=== PATIENT | female | born 1970 | race Caucasian/White ===

== ENCOUNTER 2016-11-11 10:25 | Emergency (ER) | payer BC, SELFPAY ==
--- NOTE | 2016-12-18 18:52 | ER ---
ADMIT: 11/11/2016 RM/LOC: ER [facility] MR#: [id number] [address] [id number] CLEMENTE GUO [address] [facility] [place] [address] Emergency Room Report SEX: F AGE: 46 : 1970 DATE: 11/11/2016 ADDENDUM: This patient comes to the ER because she is having shortness of breath that started this morning. It was a sudden onset. She says the severity is moderate, and it seems to be worse by exertion. 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 On physical exam, her lungs are clear. Heart regular rate and rhythm. Abdomen is soft. She did have a temperature of 100.4. Chest x-ray showed a right lower lobe infiltrate. Her white count was 12,000. DIAGNOSIS: Pneumonia. She was given a shot of Rocephin in the ER, and I wrote a prescription for Augmentin. I did do a walking O2 saturation on her, which was within normal limits. She is to take the Augmentin for the next 7 days and follow up with her primary as needed. Please see my T-sheet. DENZEL Briones / Harvinder Liu MD / modl JOB #: [id number] CC: Harvinder Liu MD, Attending Physician Bonnie Oliva MD, Family Physician
== END 2016-11-11 15:05 | disposition home or self-care (01) ==
LOC: ER 10:25
DX: J18.9 Pneumonia, unspecified organism (principal); I10 Essential (primary) hypertension; Z87.442 Personal history of urinary calculi; Z86.718 Personal history of other venous thrombosis and embolism; Z79.01 Long term (current) use of anticoagulants; Z79.899 Other long term (current) drug therapy